=== PATIENT | male | born 2000 | race Caucasian/White ===

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

== ENCOUNTER 2019-09-30 13:38 | Emergency (ER) | payer BC, MEDICAID ==
[2019-09-30 13:57] VITALS: BP 141/80; PULSE 71
[2019-09-30] MEDS ORDERED: Bacitracin Oint 1 GM U/D Packet TOP ONE (14:11)
[2019-09-30] MEDS ORDERED: Lidocaine 1% 20 ML MDV INJECT ONE (14:11)
[2019-09-30] MEDS ORDERED: Diphtheria,Pertussis(Acell),Tetanus Vaccine 0.5 ML SDV IM ONE (14:12)
--- NOTE | 2019-09-30 14:20 | EDM.PDOC ---
ED HPI GENERAL MEDICAL PROBLEM - General Chief Complaint: Laceration Stated Complaint: INJURED LEFT KNEE Time Seen by Provider: 09/30/19 14:12 Source of Information: Reports: Patient History Limitations: Reports: No Limitations - History of Present Illness INITIAL COMMENTS - FREE TEXT/NARRATIVE: pt arrived with a 2 inch laceration on the left knee. Pt cut it with his ice auger. Onset: Today, Sudden Duration: Hour(s): Location: Reports: Lower Extremity, Left Associated Symptoms: Reports: No Other Symptoms Left Knee Pain Score (Numeric/FACES): 2 - Related Data Allergies Allergy/AdvReac Type Severity Reaction Status Date / Time No Known Allergies Allergy Verified 09/30/19 14:00 Home Meds: Home Meds [place] Carbonate 300 mg PO DAILY 09/30/19 [History] [place] Carbonate 900 mg PO BEDTIME 09/30/19 [History] Paliperidone [Paliperidone ER] 1 tab PO DAILY 09/30/19 [History] Past Medical History - Past Health History Medical/Surgical History: Denies Medical/Surgical History Other HEENT History: recent ear infectoion Musculoskeletal History: Reports: Back Pain, Chronic, Fracture Psychiatric History: Reports: Anxiety, Bipolar, Depression, Psych Hospitalization(s), Suicidal Ideation Other Psychiatric History: suicidal thoughts Social & Family History - Tobacco Use Smoking Status *Q: Never Smoker - Caffeine Use Caffeine Use: Reports: Coffee Other Caffeine Use: 3 cups of coffee per day - Recreational Drug Use Recreational Drug Use: Yes Recreational Drug Type: Reports: Marijuana/Hashish Recreational Drug Use Frequency: Weekly ED ROS GENERAL - Review of Systems Review Of Systems: See Below Constitutional: Reports: No Symptoms HEENT: Reports: No Symptoms Respiratory: Reports: No Symptoms Cardiovascular: Reports: No Symptoms Endocrine: Reports: No Symptoms GI/Abdominal: Reports: No Symptoms : Reports: No Symptoms Musculoskeletal: Reports: Other (pain in the left knee--laceration) Skin: Reports: No Symptoms Neurological: Reports: No Symptoms ED EXAM, SKIN/RASH Exam: See Below Text/Narrative:: pt has a 2 inch laceration on the left knee. This is deep to the subq. Exam Limited By: No Limitations General Appearance: Alert Extremities: Other (pt has a 2 inch laceration on the left knee which is deep to the sq. ) Course - Vital Signs Last Recorded V/S: Last Vital Signs Temp 35.6 C 09/30/19 13:59 Pulse 71 09/30/19 13:59 Resp 16 09/30/19 13:59 BP 141/80 H 09/30/19 13:59 Pulse Ox 96 09/30/19 13:59 - Orders/Labs/Meds Orders: Active Orders 24 hr Category Date Time Status Vaccines to be Administered [RC] PER UNIT ROUTINE Care 09/30/19 14:12 Active Bacitracin [Bacitracin Oint 1 GM] Med 09/30/19 14:11 Once 1 dose TOP ONETIME ONE Diphth,Pertuss(Acell),Tet Vac [Adacel] Med 09/30/19 14:12 Once 0.5 ml IM .ONCE ONE Lidocaine 1% [Xylocaine 1%] Med 09/30/19 14:11 Once 20 ml INJECT ONETIME ONE Medication Orders Bacitracin (Bacitracin Oint 1 Gm) 1 dose TOP ONETIME ONE Stop: 09/30/19 14:12 Last Admin: 09/30/19 14:19 Dose: 1 dose Diphtheria/Tetanus/Acell Pertussis (Adacel) 0.5 ml IM .ONCE ONE Stop: 09/30/19 14:13 Last Admin: 09/30/19 14:21 Dose: 0.5 ml Lidocaine HCl (Xylocaine 1%) 20 ml INJECT ONETIME ONE Stop: 09/30/19 14:12 Last Admin: 09/30/19 14:19 Dose: 20 ml Meds: Medications Generic Name Dose Route Start Last Admin Trade Name Freq PRN Reason Stop Dose Admin Bacitracin 1 dose 09/30/19 14:11 09/30/19 14:19 Bacitracin Oint 1 Gm TOP 09/30/19 14:12 1 dose ONETIME ONE Administration Diphtheria/Tetanus/Acell Pertussis 0.5 ml 09/30/19 14:12 09/30/19 14:21 Adacel IM 09/30/19 14:13 0.5 ml .ONCE ONE Administration Lidocaine HCl 20 ml 09/30/19 14:11 09/30/19 14:19 Xylocaine 1% INJECT 09/30/19 14:12 20 ml ONETIME ONE Administration - Re-Assessments/Exams Free Text/Narrative Re-Assessment/Exam: 09/30/19 14:41 Pt arrived with a 2 inch laceration on the left knee. The wound was scrubbed well and infiltrated with lidocaine. It was closed with 5-0 chromic and 5-0 prolene. It was dressed with bacatracin nd covered. Departure - Departure Time of Disposition: 14:34 Disposition: Home, Self-Care 01 Condition: Fair Clinical Impression: Laceration - Discharge Information Referrals: PCP,None [Primary Care Provider] - Forms: ED Department Discharge Care Plan Goals: keep dry, sr in 7_8 days, no further ointments, keep covered with a dry dressing , avoid kneeling or working on his knees, rtc if redness or drainage. - My Orders Last 24 Hours: My Active Orders 09/30/19 14:11 Bacitracin [Bacitracin Oint 1 GM] 1 dose TOP ONETIME ONE Lidocaine 1% [Xylocaine 1%] 20 ml INJECT ONETIME ONE 09/30/19 14:12 Vaccines to be Administered [RC] PER UNIT ROUTINE Diphth,Pertuss(Acell),Tet Vac [Adacel] 0.5 ml IM .ONCE ONE - Assessment/Plan Last 24 Hours: My Active Orders 09/30/19 14:11 Bacitracin [Bacitracin Oint 1 GM] 1 dose TOP ONETIME ONE Lidocaine 1% [Xylocaine 1%] 20 ml INJECT ONETIME ONE 09/30/19 14:12 Vaccines to be Administered [RC] PER UNIT ROUTINE Diphth,Pertuss(Acell),Tet Vac [Adacel] 0.5 ml IM .ONCE ONE
== END 2019-09-30 14:49 | disposition home or self-care (01) ==
LOC: JP.ED 13:38
DX: S81.012A Laceration without foreign body, left knee, initial encounter (principal); F32.9 Major depressive disorder, single episode, unspecified; Z79.899 Other long term (current) drug therapy; W29.8XXA Contact with other powered hand tools and household machinery, initial encounter
CPT/HCPCS: 12002; 90471; 90715; 99282; J2001

== ENCOUNTER 2022-12-03 03:10 | Emergency (ER) | payer BC, MEDICAID ==
[2022-12-03 04:03] VITALS: BP 147/93; PULSE 94
[2022-12-03] MEDS ORDERED: LORazepam 2 MG/ML SDV IM ONE (04:47)
[2022-12-03] MEDS ORDERED: Haloperidol Lactate 5 MG/ML SDV IM ONE (04:47)
[2022-12-03] MEDS ORDERED: diphenhydrAMINE 50 MG/ML SDV IM ONE (04:47)
== END 2022-12-03 13:24 | disposition home or self-care (01) ==
LOC: JP.ED 03:10
DX: F31.9 Bipolar disorder, unspecified (principal)
CPT/HCPCS: 80305-QW; 96372; 99283; 99284; J1200; J1630; J2060

== ENCOUNTER 2024-12-30 12:44 | Emergency (ER) | payer BC, MEDICAID ==
[2024-12-30 13:00] VITALS: BP 147/80; PULSE 103
[2024-12-30 13:03] LABS: BASOPHILS ABSOLUTE AUTO 0.04 K/uL (0.00-0.10); BASOPHILS PERCENT AUTO 0.2 % (0.1-1.3); EOSINOPHILS ABSOLUTE AUTO 0.03 K/uL (0.00-0.40); EOSINOPHILS PERCENT AUTO 0.2 % (0.0-5.4); HEMATOCRIT 41.5 % (38.4-49.7); HEMOGLOBIN 14.3 g/dL (12.9-16.9); IMMATURE GRAN ABSOLUTE AUTO 0.07 K/uL (0.00-0.23); IMMATURE GRAN PERCENT AUTO 0.4 % (0.0-0.7); LYMPHOCYTES ABSOLUTE AUTO 2.27 K/uL (0.8-3.3); LYMPHOCYTES PERCENT AUTO 12.8 % (11.4-47.7); MEAN CORPUSCULAR HEMOGLOBIN 30.7 pg (31.6-35.5); MEAN CORPUSCULAR HGB CONC 34.5 g/dL (31.6-35.5); MEAN CORPUSCULAR VOLUME 89.1 fL (81.4-99.0); MONOCYTES ABSOLUTE AUTO 1.47 K/uL (0.20-0.90); MONOCYTES PERCENT AUTO 8.3 % (3.3-12.6); NEUTROPHILS PERCENT AUTO 78.1 % (40.0-78.1); PLATELET COUNT,PLT 206 K/uL (130-375); RED BLOOD CELL COUNT 4.66 M/uL (4.14-5.76); WHITE BLOOD CELL COUNT,WBC 17.8 K/uL (3.2-11.0)
[2024-12-30 13:30] LABS: A/G RATIO 1.4 (1.2-2.2); ALANINE AMINOTRANSFERASE,ALT 30 U/L (12-78); ALBUMIN 4.6 g/dL (3.4-5.0); ALKALINE PHOSPHATASE 77 U/L (46-116); ASPARTATE AMNIOTRANSFERASE,AST 51 U/L (15-37); BLOOD UREA NITROGEN,BUN 14 mg/dL (7-18); CALCIUM 9.2 mg/dL (8.5-10.1); CARBON DIOXIDE,CO2 25 mmol/L (21-32); CHLORIDE,CL 100 mmol/L (100-108); CREATININE 1.1 mg/dL (0.8-1.3); EST CRCL DRUG DOSING (CG) 112.68 mL/min; ESTIMATED GFR 96 mL/min (>60); GLUCOSE RANDOM 98 mg/dL (74-106); POTASSIUM,K 3.7 mmol/L (3.6-5.2); PROTEIN TOTAL,TP 7.8 g/dL (6.4-8.2); SODIUM,NA 136 mmol/L (140-148); TSH ULTRASENSITIVE 0.616 uIU/mL (0.358-3.740)
[2024-12-30 13:31] LABS: ANION GAP 14.7 mmol/L (5.0-14.0)
[2024-12-30 14:01] LABS: APPEARANCE,URINE CLEAR (CLEAR); BILIRUBIN,URINE SMALL (NEGATIVE); COLOR,URINE YELLOW (YELLOW); GLUCOSE,URINE NEGATIVE (NEGATIVE); KETONES,URINE 40 mg/dL (NEGATIVE); LEUKOCYTE ESTERASE,URINE NEGATIVE (NEGATIVE); NITRITE,URINE NEGATIVE (NEGATIVE); OCCULT BLOOD,URINE NEGATIVE (NEGATIVE); PROTEIN,URINE 30 mg/dL (NEGATIVE); UROBILINOGEN,URINE 0.2 EU/dL (0.2-1.0)
[2024-12-30 14:08] LABS: AMPHETAMINES SCREEN, URINE NEGATIVE (NEGATIVE); BARBITURATE SCREEN,URINE NEGATIVE (NEGATIVE); BENZODIAZEPINES SCREEN,URINE NEGATIVE (NEGATIVE); METHADONE SCREEN, URINE NEGATIVE (NEGATIVE); METHAMPHETAMINES SCREEN, URINE NEGATIVE (NEGATIVE); OXYCODONE SCREEN,URINE NEGATIVE (NEGATIVE); PROPOXYPHENE SCREEN,URINE NEGATIVE (NEGATIVE); THC SCREEN,URINE 50 NG/ML POSITIVE (NEGATIVE)
[2024-12-30 14:15] LABS: AMORPHOUS SEDIMENT,URINE NOT SEEN; BACTERIA,URINE NOT SEEN; EPITHELIAL CELLS,URINE NOT SEEN; MUCUS,URINE RARE; RBC,URINE NOT SEEN (0-5); WBC,URINE NOT SEEN (0-5)
[2025-01-01 16:43] LABS: LITHIUM, SERUM OR PLASMA 0.2 mmol/L (0.5-1.2)
== END 2024-12-30 14:55 | disposition home or self-care (01) ==
LOC: JP.ED 12:44
DX: F29 Unspecified psychosis not due to a substance or known physiological condition (principal); D72.829 Elevated white blood cell count, unspecified; Z79.899 Other long term (current) drug therapy
CPT/HCPCS: 36415; 80053; 80143; 80178; 80179; 80305-QW; 80307; 81001; 84443; 85025; 99285

== ENCOUNTER 2024-12-31 22:58 | Emergency (ER) | payer BC, MEDICAID ==
[2024-12-31 23:18] VITALS: PULSE 108
[2024-12-31] MEDS: Paliperidone 3 MG Tab.ER PO ONE (23:20)
[2025-01-01] MEDS ORDERED: Paliperidone 3 MG Tab.ER PO ONE (23:01)
== END 2024-12-31 23:33 ==
LOC: JP.ED 22:58
DX: F31.12 Bipolar disorder, current episode manic without psychotic features, moderate (principal); Z79.899 Other long term (current) drug therapy
CPT/HCPCS: 99283; A9270